=== PATIENT | female | born 1965 | race Caucasian/White ===

== ENCOUNTER 2019-11-09 15:37 | Outpatient (CLI) | payer MEDICAID | END 2019-11-09 15:38 | disposition home or self-care (01) | LOC: COV 15:37 | PROVIDERS: ATTEND Family Medicine | DX: R53.83 Other fatigue (principal); R09.81 Nasal congestion; Z20.828 Contact with and (suspected) exposure to other viral communicable diseases ==

== ENCOUNTER 2023-01-22 08:00 | Outpatient (CLI) | payer MEDICAID ==
--- NOTE | 2023-01-22 16:26 | XRAY Report ---
PROCEDURE: Ribs w/PA Chest RT INDICATIONS: RIGHT SIDED RIB PAIN TECHNIQUE: 3 views of the right ribs were acquired, along with a single view chest. COMPARISON: None. FINDINGS: Surgical changes and devices: None. Bones and chest wall: No fractures or dislocations. No suspicious bony lesions. Overlying soft tis sues appear unremarkable. Lungs and pleura: No pleural effusions or pneumothorax. Lungs appear clear. Mediastinum: Mediastinal contours appear normal. Heart size is normal. IMPRESSION: No visualized acute fracture or dislocation. However, occult injury cannot be excluded. Recommend joel rt interval imaging follow-up in 7-10 days as clinically indicated for additional evaluation. Reviewed by: Bobbi Syed MD on 01/22/2023 4:24 PM PDT Approved by: Bobbi Syed MD on 01/22/2023 4:24 PM PDT Station ID: [id number]
== END 2023-01-22 23:59 | disposition home or self-care (01) ==
LOC: DI.S 08:00
PROVIDERS: ATTEND Physician Assistant Medical
DX: R07.81 Pleurodynia (principal)

== ENCOUNTER 2023-04-16 08:00 | Outpatient (CLI) | payer MEDICAID | END 2023-04-16 23:59 | disposition home or self-care (01) | LOC: LAB.S 08:00 | PROVIDERS: ATTEND Registered Nurse | DX: J02.9 Acute pharyngitis, unspecified (principal) | CPT/HCPCS: 87070 ==

== ENCOUNTER 2023-04-16 09:51 | Outpatient (CLI) | payer MEDICAID ==
[2023-04-16 14:52] LABS: BASOPHILS % (AUTO) 0.8 %; EOSINOPHILS # (AUTO) 0.1 10^3/uL (0.0-0.7); EOSINOPHILS % (AUTO) 1.8 %; HCT - HEMATOCRIT 42.8 % (37.0-47.0); HGB - HEMOGLOBIN 13.3 g/dL (12.0-16.0); LYMPHOCYTES # (AUTO) 1.2 10^3/uL (1.5-3.5); LYMPHOCYTES % (AUTO) 29.5 %; MEAN CORPUSCULAR HGB CONC 31.1 g/dL (32.0-36.0); MEAN CORPUSCULAR VOLUME 93.2 fL (81.0-99.0); MEAN PLATELET VOLUME 11.2 fL (7.9-10.8); MONOCYTES # (AUTO) 0.3 10^3/uL (0.0-1.0); MONOCYTES % (AUTO) 6.8 %; NEUTROPHILS # (AUTO) 2.4 10^3/uL (1.5-6.6); NEUTROPHILS % (AUTO) 60.8 %; PLT - PLATELET COUNT 228 10^3/uL (130-450); RED BLOOD COUNT 4.59 10^6/uL (4.20-5.40); RED CELL DISTRIBUTION WIDTH 12.8 % (12.0-15.0)
[2023-04-16 16:57] LABS: ALBUMIN 4.4 g/dL (3.2-5.5); ALKALINE PHOSPHATASE 62 IU/L (42-121); ALT ALANINE AMINOTRANSFERASE 13 IU/L (10-60); AST ASPARTATE AMINOTRANSFERASE 19 IU/L (10-42); BILIRUBIN,TOTAL 0.5 mg/dL (0.2-1.0); BUN - BLOOD UREA NITROGEN 14 mg/dL (6-20); CALCIUM 9.5 mg/dL (8.5-10.3); CARBON DIOXIDE - CO2 30 mmol/L (21-32); CHLORIDE 105 mmol/L (101-111); CREATININE 0.7 mg/dL (0.6-1.3); CRP - C-REACTIVE PROTEIN < 0.5 mg/dL (<0.5); GFR - MDRD 86 (>89); GLUCOSE 71 mg/dL (74-104); MAGNESIUM 1.9 mg/dL (1.7-2.3); SODIUM 141 mmol/L (135-145); TOTAL PROTEIN 6.6 g/dL (6.4-8.9)
== END 2023-04-16 09:52 | disposition home or self-care (01) ==
LOC: LAB.S 09:51
PROVIDERS: ATTEND Registered Nurse
DX: R51.9 Headache, unspecified (principal); R53.83 Other fatigue; J34.89 Other specified disorders of nose and nasal sinuses; R25.2 Cramp and spasm
CPT/HCPCS: 36415; 80053; 81599; 83735; 85025; 86140; 86617; 86618